=== PATIENT | male | born 1955 | race Caucasian/White ===

== ENCOUNTER 2024-03-15 18:58 | Emergency (ER) | payer OTHER, SELFPAY ==
[2024-03-15 19:03] VITALS: BP 125/64
[2024-03-15 19:43] LABS: % Basophils 2.2 % (0-2); % Eosinophils 3.2 % (0-6); % Immature Granulocytes 0.6 % (0-0.5); % Lymphocytes 14.9 % (20.5-51.1); % Monocytes 13.4 % (1.7-9.3); % Neutrophils 65.7 % (42.2-75.2); Absolute Basophils 0.1 10^3/uL (0-0.2); Absolute Eosinophils 0.2 10^3/uL (0-0.7); Absolute Lymphocytes 0.8 10^3/uL (1.2-3.4); Absolute Monocytes 0.7 10^3/uL (0.1-0.6); Absolute Neutrophils 3.5 10^3/uL (1.4-6.5); Hematocrit 34.8 % (39.0-52.0); Hemoglobin 11.8 g/dL (13.0-18.0); Mean Corp Hgb Conc. 33.9 g/dL (33.0-37.0); Mean Corpuscular Hgb 28.5 pg (27.0-31.0); Mean Corpuscular Volume 84.1 fL (80.0-94.0); Mean Platelet Volume 9.4 fL (7.4-10.4); Nucleated Red Blood Cells % 0 % (-); Platelet Count 142 10^3/uL (130-400); Red Blood Cell Count 4.14 10^6/uL (4.70-6.10); Red Cell Dist. Width 15.9 % (11.5-14.5); White Blood Cell Count 5.4 10^3/uL (4.8-10.8)
[2024-03-15 19:51] LABS: Lactic Acid 2.1 mmol/L (0.7-2.0)
[2024-03-15 19:54] LABS: ALT (SGPT) 41 U/L (0-50); AST (SGOT) 77 U/L (17-59); Albumin 3.7 g/dl (3.5-5.0); Alkaline Phosphatase 133 U/L (38-126); Blood Urea Nitrogen 15 mg/dl (9-20); Carbon Dioxide 26 mmol/L (22-30); Chloride 100 mmol/L (98-107); Glucose 117 mg/dl (70-99); Potassium 3.7 mmol/L (3.5-5.1); Sodium 138 mmol/L (135-145); Total Bilirubin 1.2 mg/dl (0.2-1.3); Total Protein 6.6 g/dl (6.3-8.2); eGFR > 60.00
--- NOTE | 2024-03-15 20:27 | ED.GENMED ---
History of Present Illness
General
Chief Complaint: Abdominal Pain
Source: patient and spouse
Exam Limitations: none
Time Seen by Provider: 03/15/24 19:47
History of Present Illness
History of Present Illness:
This is a 68 year old male that comes in with c/o abd pain. States that he has pain around his umbilical hernia. States that this area is hot and that he has pain. States that this started a few weeks ago. states that he is occasionally SOB,
nauseated, has a headache, and feels light headed. Denies any fever, chills, chest pain, vomiting, diarrhea, urinary burning.
Past History
Past History
ED Past Medical History: Asthma, COPD, IDDM and Other (Headache, Vertigo, Eczema, Dermatomyositis, Polymyositis, Liver Disease)
ED Past Surgical History: Cholecystectomy, Orthopedic (Caleb foot surgery, left ankle surgery, Lumbar fusion, carpal tunnel left, Left hand surgery, Spinal stimulator, ) and Other (Hernia, Diastasis hernia, Sinus surgery multiple, )
Social History
Tobacco: Former smoker
Alcohol: Former
Personal:
Living: with family
Review of Systems
Review of Systems
All Other Systems: ROS reviewed and negative except as documented in HPI and ROS
Constitutional: Reports no symptoms; Denies fever or chills
EENT: Reports no symptoms
Respiratory: Reports cough (Chronic) and trouble breathing (occasional)
Cardiac: Denies chest pain
ABD/GI: Reports abdominal pain and nausea; Denies vomiting or diarrhea
: Reports no symptoms; Denies dysuria, frequency or urgency
Musculoskeletal: Reports no symptoms
Skin: Reports no symptoms
Neurological: Reports headache and other (Lightheaded); Denies dizzy
Psychiatric: Reports no symptoms
Phy Exam
General Physical Exam
General Presentation: no apparent distress
General age: appears stated age
General Skin: warm and dry
General Habitus: elderly
General Mental: alert
General Hydration: appears well hydrated
ENT Exam
ENT Exam: TM's normal, pharynx normal and neck supple
Eye Exam
Eye Exam: EOMI
Cardiovascular Exam
Cardiovascular Exam: regular rate/rhythm and normal peripheral pulses
Pulmonary Exam
Pulmonary Exam: lungs clear, no respiratory distress, no rales, chest non tender, no crackles, no rhonchi, no wheezing and no cough
Gastrointestinal Exam
Gastrointestinal Exam: normal bowel sounds, soft, no organomegaly, no pulsatile mass, non distended and tender (Left sided and mid abd tenderness with palpation, Umbilical hernia noted)
Musculoskeletal Exam
Musculoskeletal Exam: full ROM and edema (Slight ankle edema)
Skin Exam
Skin Exam: normal color, warm/dry, no petechia and other (slight discoloration of the lower umbilical area. (patient states that this is not new))
Psychiatric Exam
Psychiatric Exam: normal mood/affect
Course
Orders/Labs/Results
Orders:
Orders
03/15/24 19:31
Complete Blood Count/With Diff Urgent
Comprehensive Metabolic Panel Urgent
Lactate Level [Lactic Acid] Urgent
03/15/24 20:27
CT Abd/pelvis W Iv Cont Urgent
Comment:
Reason For Exam: left sided and lower abd pain
Urinalysis Reflex To Culture Urgent
0.9% Sodium Chloride 500 ml [Nss] 500 ml IV BOLUS
03/15/24 22:23
Lactic Acid Urgent
Abnormal Lab Results
03/15/24
19:31
RBC 4.14 L 10^6/uL
(4.70-6.10)
Hgb 11.8 L g/dL
(13.0-18.0)
Hct 34.8 L %
(39.0-52.0)
RDW 15.9 H %
(11.5-14.5)
Absolute Lymphs (auto) 0.8 L 10^3/uL
(1.2-3.4)
Absolute Monos (auto) 0.7 H 10^3/uL
(0.1-0.6)
Immature Gran % 0.6 H %
(0-0.5)
Lymphocytes % 14.9 L %
(20.5-51.1)
Monocytes % 13.4 H %
(1.7-9.3)
Basophils % 2.2 H %
(0-2)
Glucose 117 H mg/dl
(70-99)
Lactic Acid 2.1 H mmol/L
(0.7-2.0)
AST 77 H U/L
(17-59)
Alkaline Phosphatase 133 H U/L
(38-126)
03/15/24 19:31
03/15/24 19:31
H/H slightly low. glucose nonfasting, Lactic acid slightly elevated at 2.1, AST elevation. Alk phos elevated.
Repeat Lactic acid normal at 1.9
Vital Signs
Initial and Last Documented VS:
Initial Vital Signs
Temp Pulse Resp BP Pulse Ox
97.7 F 95 18 125/64 99
03/15/24 19:03 03/15/24 19:03 03/15/24 19:03 03/15/24 19:03 03/15/24 19:03
Last Documented Vital Signs
Temp Pulse Resp BP Pulse Ox
97.7 F 93 14 111/60 98
03/15/24 19:03 03/15/24 22:00 03/15/24 22:00 03/15/24 22:00 03/15/24 22:00
Dowel Pointer consulted with Physician
Dowel Pointer consulted with physician?: Yes
Name of Physician Consulted: Dr. Redman
MDM/Problems Addressed
Differential Diagnosis Includes:
Diverticulitis, Umbilical hernia
MDM/Problems Addressed:
This is a 68 year old male that comes in with c/o abd pain States that this has been going on for a few weeks. states that around his naval it is painful and warm.
Will check labs and get CT scan.
Back into see patient. Explained that his CT is negative for any acute process. There is fluid in the umbilical hernia but no bowel. Lactic acid has come down with fluid. Patient to follow up with the family doctor. Return with any concerns.
Chronic conditions affecting care:
Diastasis hernia, Ascites,
Acute Exacerbation and/or Progression of Chronic Illness:
NA
*Radiology
Radiology exam reviewed: radiology read reviewed (CT-Cirrhosis with findings of portal hypertension including splenomegaly, esophageal varices and pper abdominal collateral vessels. Moderate volume ascites. There is an umbilical hernia containing
ascites fluid. Colonic diverticulosis with out evidence of acute diverticulitis. )
*Pulse Oximetry
Patient hypoxic: no
*EKG
Interpreted by ED Provider?: NA
Rate: EKG- N/A
*Cad Drafter Interpretation
Rate: Cad Drafter- N/A
*Critical Care Note
Total Time (30-74mins, 75-104mins- exclusive of procedures): Not Applicable
ED Attending Note
-
Portions of this chart may have been created with voice recognition software.� Occasional wrong word or��sound alike� substitutions may have occurred due to the inherent limitations of voice recognition software.
Discharge Plan
Departure
Patient Disposition: Home (Routine Discharge)
Date of Disposition: 03/15/24
Time of Disposition: 23:00
Patient with high blood pressure during this ER visit?: No
Condition: Good
Covid-19: Not Applicable
Discharge Problem:
Abdominal pain
Instructions: Abdominal Pain
Referrals:
Jerad Fountain DO [Family Provider] - Call in 1-3 days for appt
Activity Restrictions/Additional Instructions:
As discussed, your CT scan is negative or any acute process. There is moderate amount of ascites and your umbilical hernia is filled with fluid and there is no bowel obstruction. Please follow up with the family doctor for recheck. IF YOU HAVE ANY
OTHER CONCERNS PLEASE RETURN TO THE EMERGENCY ROOM
Interventions
Interventions:
*Risk Screen - Suicide Last Done: 03/15/24 19:46
*General Assessment Last Done: 03/15/24 19:46
*Neglect/Abuse Screening Last Done: 03/15/24 19:12
AO-Zifcsw-Tpmlzysful Assessment Last Done: 03/15/24 20:42
Discharge Date and Time
Print Language: SLOVAK
[2024-03-15 20:42] VITALS: BMI 29.3
[2024-03-15] MEDS: NSS 500 IV (20:57)
[2024-03-15 21:00] VITALS: BP 119/63
[2024-03-15 22:00] VITALS: BP 111/60
[2024-03-15 22:39] LABS: Lactic Acid 1.9 mmol/L (0.7-2.0)
[2024-03-15 23:00] VITALS: BP 120/64
== END 2024-03-15 23:22 | disposition home or self-care (01) ==
LOC: EMR 18:58
PROVIDERS: Clinical Nurse Specialist Family Health; Emergency Medicine; EMERGENCY PHYSICIAN Emergency Medicine; FAMILY PHYSICIAN Family Medicine
DX: R10.9 Unspecified abdominal pain (principal); R06.02 Shortness of breath; R11.0 Nausea; R51.9 Headache, unspecified; R42 Dizziness and giddiness; K42.9 Umbilical hernia without obstruction or gangrene; K76.6 Portal hypertension; K74.60 Unspecified cirrhosis of liver; I85.10 Secondary esophageal varices without bleeding; R16.1 Splenomegaly, not elsewhere classified; K57.30 Diverticulosis of large intestine without perforation or abscess without bleeding; R18.8 Other ascites; K76.9 Liver disease, unspecified; M33.20 Polymyositis, organ involvement unspecified; L30.9 Dermatitis, unspecified; J44.89 Other specified chronic obstructive pulmonary disease; E11.9 Type 2 diabetes mellitus without complications; Z87.891 Personal history of nicotine dependence; Z90.49 Acquired absence of other specified parts of digestive tract; Z79.4 Long term (current) use of insulin; Z98.1 Arthrodesis status; Z88.6 Allergy status to analgesic agent; Z88.1 Allergy status to other antibiotic agents; Z88.5 Allergy status to narcotic agent; Z88.8 Allergy status to other drugs, medicaments and biological substances
CPT/HCPCS: 99285; 74177; 80053; 83605; 85025; Q9967